=== PATIENT | male | born 1995 | race Hispanic/Latino ===

== ENCOUNTER → 2021-04-07 | Day surgery (SDC) | payer OTHER ==
[~2021-04-07] MED LIST: FENTANYL CITRATE/PF 100MCG/2 ML INJ ONE; GLUCAGON FOR INJ 1 MG VIAL ONE; IRON PO; LIDOCAINE HCL 2% LOCAL INJ 5 ML SDV VIAL INJ ONE; MIDAZOLAM HCL 5 MG/ML VIAL ONE; PROPOFOL IV EMULSION 10 MG/ML 20 ML VIAL ONE
[2021-04-07 13:35] VITALS: BP 107/71
== END | disposition home or self-care (01) ==
LOC: OR 10:56
PROVIDERS: ATTEND Internal Medicine Gastroenterology
DX: R19.5 Other fecal abnormalities (principal); K29.70 Gastritis, unspecified, without bleeding; K59.09 Other constipation; K62.5 Hemorrhage of anus and rectum; D64.9 Anemia, unspecified; K20.90 Esophagitis, unspecified without bleeding; K64.8 Other hemorrhoids; Z71.3 Dietary counseling and surveillance; F41.9 Anxiety disorder, unspecified; Z72.0 Tobacco use; Z01.812 Encounter for preprocedural laboratory examination; Z20.822 Contact with and (suspected) exposure to COVID-19; Z68.29 Body mass index [BMI] 29.0-29.9, adult
CPT/HCPCS: 43239; 45380; J1610; J2001; J2250; J3010; U0002